=== PATIENT | male | born 1960 | race Two or more races ===

== ENCOUNTER 2021-10-27 13:41 | Emergency (ER) | payer MEDICAID, OTHER ==
[~2021-10-27] VITALS: Ht 172.7 cm; Wt 105.7 kg
[2021-10-27 13:41] VITALS: BP 116/65
[2021-10-27] MEDS ORDERED: [UNRECOGNIZED DRUG - CODE] XX (16:39)
[2021-10-27] MEDS ORDERED: CEPH-509 PO (16:39)
== END 2021-10-27 16:53 | disposition left against medical advice (07) ==
LOC: ER 13:41
DX: R60.0 Localized edema (principal); I73.9 Peripheral vascular disease, unspecified; L03.115 Cellulitis of right lower limb
CPT/HCPCS: 93005; 93971

== ENCOUNTER 2022-06-08 05:55 | Emergency (ER) | payer MEDICAID ==
[~2022-06-08] VITALS: Ht 165.1 cm; Wt 100.0 kg
[~2022-06-08 05:55] MED LIST: CEPH-509 PO; [UNRECOGNIZED DRUG - CODE] XX
[2022-06-08 06:34] LABS: Mean Corpuscular Hemoglobin 33.2 pg (28.0-32.0); Mean Corpuscular Hgb Conc. 34.2 g/dL (32.0-36.0); Mean Corpuscular Volume 96.9 fL (80.0-100.0); Red Cell Distribution Width 15.5 % (11.8-14.3); White Blood Cell 10.1 10^3/uL (4.4-10.8)
[2022-06-08 06:46] LABS: Albumin 2.9 g/dL (3.4-5.0); Calcium 8.7 mg/dL (8.5-10.1); Potassium 4.4 mmol/L (3.5-5.1)
[2022-06-08 06:48] LABS: BUN/Creatinine Ratio 13.5
[2022-06-08 06:50] LABS: Basophils % (manual) 0 (0.0-2.0); Blast Cells 0; Eosinophils % (manual) 0 (0-7); Metamyelocytes % 0; Myelocytes % 0; Promyelocytes % 0; Reactive Lymphocytes 0
[2022-06-08 06:51] LABS: Bilirubin, Total 4.5 mg/dL (0.2-1.0); Total Protein 6.6 g/dL (6.4-8.2)
[2022-06-08 06:58] LABS: Lactic Acid w/Reflex 3.4 mmol/L (0.4-2.0)
[2022-06-08 07:04] LABS: Band Neutrophils % (manual) 2; Lymphocytes % (manual) 7 (10.0-50.0); Monocytes % (manual) 5 (0-12)
[2022-06-08 07:45] VITALS: BP 106/57
[2022-06-08 08:15] LABS: INR 1.77 (0.9-1.15); Partial Thromboplastin Time 43.2 sec (24.6-33.4)
== END 2022-06-08 08:36 | disposition left against medical advice (07) ==
LOC: ER 05:55 → EDBD 05:55 → EDUNIT# 05:55 → ER 08:36
DX: R18.8 Other ascites (principal); R53.1 Weakness; R51.9 Headache, unspecified; Z79.899 Other long term (current) drug therapy
CPT/HCPCS: 36415; 70450; 71250; 72131; 80053; 83605; 83690; 84484; 85007; 85027; 85610; 85730; 93005